=== PATIENT | male | born 1990 | race Caucasian/White ===

== ENCOUNTER 2018-02-06 15:06 | Emergency (ER) | payer OTHER ==
--- NOTE | 2018-02-06 17:42 | ER Document Report ---
ED Skin Rash/Insect Bite/Abscs - General Mode of Arrival: Ambulatory Information source: Patient TRAVEL OUTSIDE OF THE [place] IN LAST 30 DAYS: No - General Chief Complaint: Swelling Stated Complaint: SWELLING NOSE AND UPPER LIP Time Seen by Provider: 02/06/18 17:33 Notes: Patient is a 27-year-old male that presents to the emergency department today with complaints of a possible "nose pimple". Patient states he woke up 4 days ago with this and has been trying to put hot compresses on it which has caused slight discharge from the area. Patient has a slight headache. Patient denies fevers, chills, vision changes. (HETAL RODRIGUEZ) - Related Data Allergies/Adverse Reactions: No Known Allergies Allergy (Unverified 02/06/18 15:12) Past Medical History - General Information source: Patient - Social History Smoking Status: Never Smoker Cigarette use (# per day): No Chew tobacco use (# tins/day): No Frequency of alcohol use: None Drug Abuse: None Lives with: Family Family History: Reviewed & Not Pertinent Patient has suicidal ideation: No Patient has homicidal ideation: No - Medical History Medical History: Negative Renal/ Medical History: Denies: Hx Peritoneal Dialysis Past Surgical History: Reports: Hx Orthopedic Surgery - Left shoulder, left leg , right ankle Review of Systems - Review of Systems Constitutional: No symptoms reported EENT: No symptoms reported Cardiovascular: No symptoms reported Respiratory: No symptoms reported Gastrointestinal: No symptoms reported Genitourinary: No symptoms reported Male Genitourinary: No symptoms reported Musculoskeletal: No symptoms reported Skin: See HPI, Other - infection to nose/upper lip Hematologic/Lymphatic: No symptoms reported Neurological/Psychological: No symptoms reported -: Yes All other systems reviewed and negative Physical Exam - Vital signs Vitals: Temp Pulse Resp BP Pulse Ox 99.4 F 82 16 158/78 H 99 02/06/18 15:14 02/06/18 15:14 02/06/18 15:14 02/06/18 15:14 02/06/18 15:14 - Notes Notes: Physical Exam: General: Alert, appears well. HEENT: Normocephalic. Atraumatic. PERRLA. Extraocular movements intact. Oropharynx clear. Small area of erythema inferior to both nares and around upper lip with multiple (3) sinuses with yellow crusty discharge. No proptosis. No mouth involvement. Neck: Supple. Respiratory: No respiratory distress. Abdominal: Normal Inspection. No distension. Extremities: Moves all four extremities. Neurological: Normal cognition. AAOx4. Normal speech. Psychological: Normal affect. Normal Mood. Skin: Warm. Dry. Normal color. (HETAL RODRIGUEZ) Course - Re-evaluation Re-evalutation: 02/06/18 17:42 Patient has been having erythema and small pustules around his opening of his nares since Monday that is spread from the right to the left. His exam is consistent with impetigo. Will provide mupirocin as well as clindamycin due to spread of erythema in proximity of infection close to nares and venous drainage return to cavernous sinus. Patient has no signs of venous sinus thrombosis. I did discuss patient to use warm compresses 02/06/18 17:45 (CAROL [place]) - Vital Signs Vital signs: Temp Pulse Resp BP Pulse Ox 98.7 F 76 20 159/95 H 99 02/06/18 17:45 02/06/18 17:45 02/06/18 17:45 02/06/18 17:45 02/06/18 17:45 Discharge - Discharge Clinical Impression: Impetigo Condition: Good Disposition: HOME, SELF-CARE Instructions: Bactroban Ointment ([facility]), Clindamycin ([facility]), Impetigo ([facility]) Additional Instructions: Please return the emergency department in the next 48 hours if symptoms are worsening. Prescriptions: Clindamycin HCl 300 mg PO QID #40 capsule Mupirocin [Bactroban 2% Ointment 22 gm] 1 applic TP TID #1 tube Referrals: ELIZABETH BOTELLO PA [Primary Care Provider] - Follow up as needed Scribe Attestation: 02/10/18 15:01 I personally performed the services described documentation, reviewed and edited the documentation which was dictated to describe my presence, and it accurately records my words and actions. (CAROL [place]) Scribe Documentation - Scribe Written by Scribe:: Antolin Mahoney, 02/06/2018 [id number] acting as scribe for :: Basim
[2018-02-06 17:45] VITALS: BP 159/95
== END 2018-02-06 17:45 | disposition home or self-care (01) ==
LOC: ER 15:06
DX: L01.00 Impetigo, unspecified (principal); R51 Headache
CPT/HCPCS: 99282